=== PATIENT | male | born 1965 | race Caucasian/White ===

== ENCOUNTER 2021-03-30 13:13 | Inpatient (IN) | payer MEDICAID ==
[~2021-03-30] VITALS: Ht 157.5 cm; Wt 80.7 kg
[2021-03-30] MEDS ORDERED: SODIUM CHLORIDE 0.9% 1,000 ML IV ONE (16:30)
[2021-03-30] MEDS ORDERED: ASPIRIN 325MG EC TABLET PO ONE (16:45)
[2021-03-30 17:00] LABS: BASOPHILS % 0.7 % (0.0-2.0); EOSINOPHILS % 1.7 % (0.0-5.0); LYMPHOCYTES % 19.3 % (20.0-50.0); MEAN CORPUSCULAR HEMOGLOBIN 16.7 pg (28.0-32.0); MEAN CORPUSCULAR VOLUME 60.4 fL (80.0-94.0); MEAN PLATELET VOLUME 8.3 fl (7.4-10.4); MONOCYTES % 9.2 % (2.0-8.0); NEUTROPHILS % 69.1 % (40.0-76.0); PLATELET 288 x1000/uL (130-400); RED BLOOD CELL COUNT 3.46 mill/uL (4.7-6.1); RED CELL DISTRIBUTION WIDTH 20.9 % (11.6-14.6)
[2021-03-30 17:16] LABS: CHLORIDE 105 mEq/L (98-107)
[2021-03-30 17:25] LABS: HEMATOCRIT. 20.9 % (42.0-52.0); HEMOGLOBIN. 5.8 g/dL (14.0-18.0)
[2021-03-30 17:57] LABS: PLATELET ESTIMATE NORMAL
[2021-03-30] MEDS ORDERED: PANTOPRAZOLE 80 MG in SODIUM CHLORIDE 0.9% 100 ML IV STA (17:57)
[2021-03-30] MEDS ORDERED: PANTOPRAZOLE SODIUM 40 MG/VIAL IV STA (17:57)
[2021-03-30 18:35] LABS: INR 1.1; PARTIAL THROMBOPLASTIN TIME < 21.0 sec (23.4-31.0); PROTHROMBIN TIME 11.6 sec (9.6-11.0)
[2021-03-30] MEDS ORDERED: DIPHENHYDRAMINE 50MG/ML VIAL IV PRN (19:30)
[2021-03-30] MEDS ORDERED: CLONIDINE 0.1MG TABLET PO PRN (19:30)
[2021-03-30] MEDS ORDERED: ONDANSETRON HCL 4MG/2ML INJ IV PRN (19:30)
[2021-03-30] MEDS ORDERED: ACETAMINOPHEN 325MG TABLET PO PRN (19:30)
[2021-03-30 19:49] LABS: TOTAL IRON BINDING CAPACITY 420 ug/dL (250-450)
[2021-03-30 20:13] LABS: FOLIC ACID (FOLATE) SERUM > 20.00 ng/mL (>5.38)
[2021-03-30 20:20] LABS: VITAMIN B12 SERUM 312 pg/mL (211-911)
[2021-03-30 20:33] LABS: FERRITIN < 5 ng/mL (22-322)
[2021-03-30 21:00] VITALS: BP 140/83
[2021-03-30] MEDS: SODIUM CHLORIDE 0.9% 1,000 ML IV SCH ×2 (21:05→23:50)
[2021-03-30 22:00] VITALS: BP 140/83
[2021-03-31] VITALS (12 sets, daily range): BP systolic 103–138; BP diastolic 45–90
[2021-03-31 07:04] LABS: CHLORIDE 107 mEq/L (98-107)
[2021-03-31 07:15] LABS: LDL CHOLESTEROL 63 mg/dL (5-100)
[2021-03-31 07:16] LABS: HDL CHOLESTEROL 28 mg/dL (40-59)
[2021-03-31 07:41] LABS: BASOPHILS % 0.9 % (0.0-2.0); EOSINOPHILS % 1.8 % (0.0-5.0); HEMATOCRIT. 22.5 % (42.0-52.0); LYMPHOCYTES % 24.2 % (20.0-50.0); MEAN CORPUSCULAR HEMOGLOBIN 18.1 pg (28.0-32.0); MEAN CORPUSCULAR VOLUME 64.4 fL (80.0-94.0); MEAN PLATELET VOLUME 8.7 fl (7.4-10.4); MONOCYTES % 7.7 % (2.0-8.0); NEUTROPHILS % 65.4 % (40.0-76.0); PLATELET 260 x1000/uL (130-400); RED CELL DISTRIBUTION WIDTH 23.6 % (11.6-14.6)
[2021-03-31 07:55] LABS: HEMOGLOBIN. 6.3 g/dL (14.0-18.0)
[2021-03-31] MEDS: SODIUM CHLORIDE 0.9% 1,000 ML IV SCH ×2 (08:26→20:30)
[2021-03-31 11:58] LABS: TOTAL IRON BINDING CAPACITY 388 ug/dL (250-450)
[2021-03-31] MEDS: PANTOPRAZOLE SODIUM 40 MG/VIAL IV SCH (17:45)
[2021-03-31 21:07] LABS: HEMATOCRIT 28.5 % (42.0-52.0); HEMOGLOBIN 8.2 g/dL (14.0-18.0)
[2021-04-01] VITALS: BP 134/82
[2021-04-01] MEDS: SODIUM CHLORIDE 0.9% 1,000 ML IV SCH ×2 (03:00→08:56)
[2021-04-01 04:00] VITALS: BP 129/84
[2021-04-01 08:00] VITALS: BP 132/77
[2021-04-01] MEDS: PANTOPRAZOLE SODIUM 40 MG/VIAL IV SCH (08:56)
[2021-04-01 09:06] LABS: FOLATE HEMATOCRIT 24.5 % (37.5-51.0)
[2021-04-01 12:00] VITALS: BP 132/83
[2021-04-01 15:06] LABS: FOLATE HEMOLYSATE < 120.0 ng/mL (Not Estab.); FOLATE RBC < 490 ng/mL (>498)
[2021-04-01 16:00] VITALS: BP 143/86
== END 2021-04-01 16:50 | disposition left against medical advice (07) | DRG 253 ==
LOC: ER 13:13 → EDBEDREQTM 18:09 → EDBEDREQ 18:09 → ENRESERV 19:57 → 7EST 21:42
PROVIDERS: ADMIT Internal Medicine; ATTEND Internal Medicine
PROC: 30233N1 Transfusion of Nonautologous Red Blood Cells into Peripheral Vein, Percutaneous Approach (ICD-10-PCS; principal; 2021-03-30)
DX: K92.2 Gastrointestinal hemorrhage, unspecified (principal); E44.0 Moderate protein-calorie malnutrition; D64.9 Anemia, unspecified; Z53.29 Procedure and treatment not carried out because of patient's decision for other reasons; Z72.89 Other problems related to lifestyle; Z68.32 Body mass index [BMI] 32.0-32.9, adult
CPT/HCPCS: 36415; 71045; 78278; 80053; 80061; 82607; 82728; 82746; 82747; 83540; 83550; 84443; 84484; 85014; 85018; 85025; 85044; 86850; 86900; 86920; 93005; 93970; 99285; A9560; C1893; C9113; J7030; J7040; J7050; P9016

== ENCOUNTER 2024-01-17 17:58 | Emergency (ER) | payer MEDICAID ==
[~2024-01-17] VITALS: Ht 157.5 cm; Wt 79.4 kg
[2024-01-17 18:11] VITALS: BP 161/85; PULSE 95; RESP 16; O2SAT 98
[2024-01-17 19:34] VITALS: TEMP 98.7
[2024-01-17] MEDS: ACETAMINOPHEN 325MG TABLET PO ONE (19:34)
== END 2024-01-17 22:10 | disposition home or self-care (01) ==
LOC: ER 17:58
DX: S20.312A Abrasion of left front wall of thorax, initial encounter (principal); R07.89 Other chest pain; F19.90 Other psychoactive substance use, unspecified, uncomplicated; W01.0XXA Fall on same level from slipping, tripping and stumbling without subsequent striking against object, initial encounter; Y93.89 Activity, other specified; Y92.89 Other specified places as the place of occurrence of the external cause; Y99.8 Other external cause status
CPT/HCPCS: 71046; 99283

== ENCOUNTER 2025-04-21 14:45 | Inpatient (IN) | payer MEDICAID ==
[~2025-04-21] VITALS: Ht 157.5 cm; Wt 51.5 kg
[2025-04-21 14:54] VITALS: O2SAT 97
[2025-04-21 16:50] LABS: BASOPHILS % 1.5 % (0.0-2.0); EOSINOPHILS % 1.9 % (0.0-5.0); HEMATOCRIT. 27.9 % (42.0-52.0); HEMOGLOBIN. 8.3 g/dL (14.0-18.0); LYMPHOCYTES % 10.5 % (20.0-50.0); MEAN PLATELET VOLUME 8.8 fl (7.4-10.4); MONOCYTES % 6.5 % (2.0-8.0); NEUTROPHILS % 79.6 % (40.0-76.0); PLATELET 169 x1000/uL (130-400); RED BLOOD CELL COUNT 3.85 mill/uL (4.7-6.1); RED CELL DISTRIBUTION WIDTH 22.0 % (11.6-14.6)
[2025-04-21 16:53] LABS: ADD RBC MORPHOLOGY YES
[2025-04-21] MEDS: FUROSEMIDE 40MG/4ML VIAL IVP ONE (16:53)
[2025-04-21 17:01] LABS: INR 1.6
[2025-04-21 17:03] LABS: CREATININE 0.6 mg/dL (0.6-1.3); UREA NITROGEN BLOOD < 5 mg/dL (9-23)
[2025-04-21 17:04] LABS: TROPONIN I HIGH SENSITIVITY < 4 ng/L (3.0-53)
[2025-04-21 17:05] LABS: ASPARTATE AMINOTRANSFERASE 80 IU/L (<34); BILIRUBIN DIRECT 1.8 mg/dL (<=3.0)
[2025-04-21 17:06] LABS: BILIRUBIN TOTAL 3.6 mg/dL (0.1-1.0); PLATELET ESTIMATE NORMAL; PROTEIN TOTAL 8.2 g/dL (6.0-8.3)
[2025-04-21 20:29] LABS: CLARITY URINE CLEAR (CLEAR); COLOR URINE YELLOW (YELLOW); GLUCOSE URINE NEGATIVE (NEGATIVE); KETONES URINE NEGATIVE (NEGATIVE); LEUKOCYTE ESTERASE URINE NEGATIVE (NEGATIVE); NITRITE URINE NEGATIVE (NEGATIVE); OCCULT BLOOD URINE NEGATIVE (NEGATIVE); PH URINE 5.5 (4.5-8.0); PROTEIN URINE NEGATIVE (NEGATIVE); SPECIFIC GRAVITY URINE 1.007 (1.005-1.030); UROBILINOGEN URINE 0.2 E.U./dL (0.2-1.0)
[2025-04-21 21:09] VITALS: BP 124/75; PULSE 91; RESP 18; TEMP 36.9184
[2025-04-21] MEDS ORDERED: ACETAMINOPHEN 325MG TABLET PO PRN (21:45)
[2025-04-21] MEDS ORDERED: IPRATROPIUM/ALBUTEROL 0.5-3(2.5)MG/3ML NEB HHN PRN (21:45)
[2025-04-21] MEDS ORDERED: ONDANSETRON HCL 4MG/2ML INJ IV PRN (21:45)
[2025-04-21] MEDS ORDERED: CLONIDINE 0.1MG TABLET PO PRN (21:45)
[2025-04-21] MEDS ORDERED: MAGNESIUM/ALUMINUM HYDROXIDE/SIMETHICONE 30ML UDC PO PRN (21:45)
[2025-04-21] MEDS ORDERED: HYDROCODONE/ACETAMINOPHEN 5/325MG TABLET PO PRN (21:45)
[2025-04-21] MEDS ORDERED: DOCUSATE SODIUM 100MG CAPSULE PO PRN (21:45)
[2025-04-22] VITALS: BP 113/59; PULSE 76; RESP 19; TEMP 36.6; O2SAT 97
[2025-04-22 04:00] VITALS: BP 120/60; PULSE 86; RESP 18; TEMP 36.2; O2SAT 96
[2025-04-22 07:06] LABS: BASOPHILS % 1.1 % (0.0-2.0); EOSINOPHILS % 3.7 % (0.0-5.0); HEMATOCRIT. 25.3 % (42.0-52.0); HEMOGLOBIN. 7.8 g/dL (14.0-18.0); LYMPHOCYTES % 15.2 % (20.0-50.0); MEAN PLATELET VOLUME 9.2 fl (7.4-10.4); MONOCYTES % 8.7 % (2.0-8.0); NEUTROPHILS % 71.3 % (40.0-76.0); PLATELET 145 x1000/uL (130-400); RED BLOOD CELL COUNT 3.50 mill/uL (4.7-6.1); RED CELL DISTRIBUTION WIDTH 22.3 % (11.6-14.6)
[2025-04-22 07:29] LABS: TROPONIN I HIGH SENSITIVITY < 4 ng/L (3.0-53)
[2025-04-22 07:40] LABS: T4 FREE 1.02 ng/dL (0.89-1.76)
[2025-04-22 07:41] LABS: CREATININE 0.5 mg/dL (0.6-1.3); TRIGLYCERIDE 88 mg/dL (0-150); UREA NITROGEN BLOOD < 5 mg/dL (9-23)
[2025-04-22 07:42] LABS: ASPARTATE AMINOTRANSFERASE 59 IU/L (<34); LDL CHOLESTEROL 45 mg/dL (5-100); PROTEIN TOTAL 7.0 g/dL (6.0-8.3)
[2025-04-22 07:43] LABS: BILIRUBIN DIRECT 1.3 mg/dL (<=3.0); PHOSPHORUS 3.2 mg/dL (2.5-4.9)
[2025-04-22 08:00] VITALS: BP 111/55; PULSE 82; RESP 16; TEMP 36.4; O2SAT 99
[2025-04-22 09:13] LABS: *AMPHETAMINES SCREEN URINE NEGATIVE (NEGATIVE); *BARBITURATES SCREEN URINE NEGATIVE (NEGATIVE); *BENZODIAZEPINES SCREEN URINE NEGATIVE (NEGATIVE); *COCAINE SCREEN URINE NEGATIVE (NEGATIVE); METHADONE URINE SCREEN NEGATIVE (NEGATIVE); OPIATES URINE SCREEN NEGATIVE (NEGATIVE)
[2025-04-22 09:14] LABS: CANNABINOID URINE SCREEN NEGATIVE (NEGATIVE); ECSTASY MDMA SCREEN URINE NEGATIVE (NEGATIVE); PHENCYCLIDINE URINE SCREEN NEGATIVE (NEGATIVE)
[2025-04-22 09:52] LABS: BILIRUBIN TOTAL 2.6 mg/dL (0.1-1.0)
[2025-04-22 12:00] VITALS: BP 115/71; PULSE 91; RESP 17; TEMP 36.3; O2SAT 98
[2025-04-22] MEDS: SODIUM CHLORIDE 0.45% 1,000 ML IV SCH (16:30)
[2025-04-22] MEDS: SPIRONOLACTONE 12.5MG TABLET PO SCH (17:58)
[2025-04-22] MEDS: FUROSEMIDE 40MG TABLET PO SCH (17:59)
[2025-04-22 20:00] VITALS: BP 127/78; PULSE 92; RESP 20; TEMP 36.3; O2SAT 98
[2025-04-22] MEDS: LACTULOSE 20G/30ML UDC PO SCH (22:00)
[2025-04-23] VITALS: BP 103/51; PULSE 85; RESP 19; TEMP 36.3; O2SAT 97
[2025-04-23 01:32] LABS: HEPATITIS A AB IGM NEGATIVE (Negative)
[2025-04-23 01:33] LABS: HEPATITIS B CORE AB IGM NEGATIVE (Negative); HEPATITIS C AB NON REACTIVE (Neg) (Negative)
[2025-04-23 04:00] VITALS: BP 108/62; PULSE 94; RESP 20; TEMP 36.2; O2SAT 99
[2025-04-23 07:26] LABS: INR 1.7
[2025-04-23 07:38] LABS: CREATININE 0.6 mg/dL (0.6-1.3); UREA NITROGEN BLOOD < 5 mg/dL (9-23)
[2025-04-23 07:40] LABS: ASPARTATE AMINOTRANSFERASE 59 IU/L (<34); BILIRUBIN DIRECT 1.3 mg/dL (<=3.0); BILIRUBIN TOTAL 2.6 mg/dL (0.1-1.0); PHOSPHORUS 3.0 mg/dL (2.5-4.9); PROTEIN TOTAL 7.2 g/dL (6.0-8.3)
[2025-04-23 07:42] LABS: BASOPHILS % 0.8 % (0.0-2.0); EOSINOPHILS % 2.8 % (0.0-5.0); HEMATOCRIT. 25.6 % (42.0-52.0); HEMOGLOBIN. 7.7 g/dL (14.0-18.0); LYMPHOCYTES % 14.4 % (20.0-50.0); MEAN PLATELET VOLUME 9.0 fl (7.4-10.4); MONOCYTES % 8.7 % (2.0-8.0); NEUTROPHILS % 73.3 % (40.0-76.0); PLATELET 140 x1000/uL (130-400); RED BLOOD CELL COUNT 3.55 mill/uL (4.7-6.1); RED CELL DISTRIBUTION WIDTH 22.7 % (11.6-14.6)
[2025-04-23 07:48] LABS: FOLIC ACID (FOLATE) SERUM 12.50 ng/mL (>5.38); VITAMIN B12 SERUM 1463 pg/mL (211-911)
[2025-04-23 08:00] VITALS: BP 101/55; PULSE 88; RESP 18; TEMP 36.4; O2SAT 97
[2025-04-23 08:15] LABS: CLARITY URINE CLEAR (CLEAR); COLOR URINE DARK YELLOW (YELLOW); GLUCOSE URINE NEGATIVE (NEGATIVE); KETONES URINE TRACE (NEGATIVE); LEUKOCYTE ESTERASE URINE TRACE (NEGATIVE); NITRITE URINE POSITIVE (NEGATIVE); OCCULT BLOOD URINE NEGATIVE (NEGATIVE); PH URINE 6.0 (4.5-8.0); PROTEIN URINE 1+ (NEGATIVE); SPECIFIC GRAVITY URINE 1.027 (1.005-1.030); UROBILINOGEN URINE 1.0 E.U./dL (0.2-1.0)
[2025-04-23] MEDS: CARVEDILOL 3.125 MG TABLET PO SCH (08:43)
[2025-04-23 10:19] LABS: MUCUS URINE 2+ /lpf (NONE/TRACE); SQUAMOUS EPITHELIAL CELL URINE NONE SEEN /lpf (RARE/1+)
[2025-04-23 10:20] LABS: BACTERIA URINE 1+
[2025-04-23 10:21] LABS: RBC URINE NONE SEEN /hpf (0-2)
[2025-04-23] MEDS ORDERED: NALOXONE HCL 0.4MG/ML VIAL IV PRN (10:45)
[2025-04-23] MEDS: POTASSIUM CHLORIDE 20MEQ TABLET SR PO SCH (11:48)
[2025-04-23 12:00] VITALS: BP 106/54; PULSE 89; RESP 18; TEMP 36.3; O2SAT 97
[2025-04-23] MEDS: FERROUS SULFATE 325MG TABLET PO SCH (12:00)
[2025-04-23] MEDS ORDERED: LIDOCAINE HCL 1% 10 MG/ML 10ML VIAL ONE (12:02)
[2025-04-23] MEDS ORDERED: SODIUM BICARBONATE 4.2% 2.5MEQ/5ML VIAL IV ONE (12:02)
[2025-04-23] MEDS: POTASSIUM CHLORIDE 20MEQ TABLET SR PO NR (14:40)
[2025-04-23] MEDS: CALCIUM GLUCONATE 1GM PREMIX 50 ML IV NR (14:41)
[2025-04-23 16:00] VITALS: BP 93/48; PULSE 81; RESP 17; TEMP 36.7; O2SAT 96
[2025-04-23 20:00] VITALS: BP 102/52; PULSE 77; RESP 20; TEMP 36.7; O2SAT 99
[2025-04-23] MEDS: POTASSIUM CHLORIDE 20MEQ TABLET SR PO PRN (22:16)
[2025-04-23 23:00] LABS: BODY FLUID MONOCYTES 7 %; BODY FLUID RBC 324 /cu mm (0-2000); BODY FLUID WBC 159 /cu mm (0-200)
[2025-04-24] VITALS: BP 95/55; PULSE 82; RESP 20; TEMP 36.7; O2SAT 98
[2025-04-24 04:00] VITALS: BP 97/57; PULSE 85; RESP 20; TEMP 36.6; O2SAT 98
[2025-04-24 08:00] VITALS: BP 127/76; PULSE 77; RESP 18; TEMP 36.4; O2SAT 98
[2025-04-24 08:51] LABS: ASPARTATE AMINOTRANSFERASE 64 IU/L (<34); CREATININE 0.5 mg/dL (0.6-1.3)
[2025-04-24 08:52] LABS: UREA NITROGEN BLOOD < 5 mg/dL (9-23)
[2025-04-24 08:54] LABS: BILIRUBIN DIRECT 1.1 mg/dL (<=3.0); BILIRUBIN TOTAL 2.2 mg/dL (0.1-1.0); PROTEIN TOTAL 7.7 g/dL (6.0-8.3)
[2025-04-24 09:28] LABS: BASOPHILS % 1.1 % (0.0-2.0); EOSINOPHILS % 4.3 % (0.0-5.0); HEMATOCRIT. 27.9 % (42.0-52.0); HEMOGLOBIN. 8.3 g/dL (14.0-18.0); LYMPHOCYTES % 16.0 % (20.0-50.0); MEAN PLATELET VOLUME 8.8 fl (7.4-10.4); MONOCYTES % 7.5 % (2.0-8.0); NEUTROPHILS % 71.1 % (40.0-76.0); PLATELET 164 x1000/uL (130-400); RED BLOOD CELL COUNT 3.83 mill/uL (4.7-6.1); RED CELL DISTRIBUTION WIDTH 22.0 % (11.6-14.6)
[2025-04-24 12:00] VITALS: BP_SYST 150; BP_SYST 97; BP_DIAS 54; BP_DIAS 90; PULSE 80; PULSE 97; RESP 14; RESP 18; TEMP 36.1; TEMP 36.2; TEMP 36.5; O2SAT 95; O2SAT 99
[2025-04-24 16:00] VITALS: BP 102/65; PULSE 74; RESP 19; TEMP 36.4; O2SAT 99
[2025-04-24 20:00] VITALS: BP 109/66; PULSE 80; RESP 21; TEMP 36.6; O2SAT 98
[2025-04-25] VITALS: BP 125/68; PULSE 75; RESP 21; TEMP 36.5; O2SAT 99
[2025-04-25 04:00] VITALS: BP 114/67; PULSE 75; RESP 21; TEMP 36.5; O2SAT 99
[2025-04-25 08:00] VITALS: BP 127/73; PULSE 77; RESP 18; TEMP 36.7; O2SAT 98
[2025-04-25 11:42] LABS: BASOPHILS % 1.0 % (0.0-2.0); EOSINOPHILS % 4.2 % (0.0-5.0); HEMATOCRIT. 28.3 % (42.0-52.0); HEMOGLOBIN. 8.5 g/dL (14.0-18.0); LYMPHOCYTES % 15.9 % (20.0-50.0); MEAN PLATELET VOLUME 8.8 fl (7.4-10.4); MONOCYTES % 8.3 % (2.0-8.0); NEUTROPHILS % 70.6 % (40.0-76.0); PLATELET 164 x1000/uL (130-400); RED BLOOD CELL COUNT 3.87 mill/uL (4.7-6.1); RED CELL DISTRIBUTION WIDTH 22.6 % (11.6-14.6)
[2025-04-25 11:52] LABS: ADD RBC MORPHOLOGY NO
[2025-04-25 12:22] LABS: CREATININE 0.6 mg/dL (0.6-1.3)
[2025-04-25 12:23] LABS: UREA NITROGEN BLOOD < 5 mg/dL (9-23)
[2025-04-25 12:24] LABS: ASPARTATE AMINOTRANSFERASE 71 IU/L (<34)
[2025-04-25 12:25] LABS: BILIRUBIN DIRECT 1.2 mg/dL (<=3.0); BILIRUBIN TOTAL 2.4 mg/dL (0.1-1.0); PROTEIN TOTAL 7.7 g/dL (6.0-8.3)
[2025-04-25] MEDS: POTASSIUM CHLORIDE 20MEQ TABLET SR PO SCH (15:39)
[2025-04-25 16:00] VITALS: BP 105/54; PULSE 80; RESP 19; TEMP 36.5; O2SAT 99
[2025-04-25] MEDS ORDERED: COR3 MT (17:27)
[2025-04-25] MEDS ORDERED: LACT10SO81 MT (17:27)
[2025-04-25] MEDS ORDERED: SPIR25TA6 MT (17:27)
[2025-04-25] MEDS ORDERED: ASCO-339 MT (17:27)
[2025-04-25] MEDS ORDERED: FURO-151 MT (17:27)
[2025-04-25] MEDS ORDERED: FERR-71 MT (17:27)
[2025-04-25 20:00] VITALS: BP 128/69; PULSE 82; RESP 18; TEMP 36.6; O2SAT 98
[2025-04-26] VITALS (7 sets, daily range): BP systolic 101–124; BP diastolic 55–75; PULSE 71–89; RESP 18–20; TEMP 36.2–37.1; O2SAT 95–100
[2025-04-26 10:48] LABS: ASPARTATE AMINOTRANSFERASE 80 IU/L (<34); BILIRUBIN DIRECT 1.0 mg/dL (<=3.0); BILIRUBIN TOTAL 1.9 mg/dL (0.1-1.0); PROTEIN TOTAL 7.1 g/dL (6.0-8.3)
[2025-04-26] MEDS: LACTULOSE ENEMA 1,000ML BOTTLE PR SCH (16:00)
== END 2025-04-26 16:55 | disposition home or self-care (01) ==
LOC: ER 14:45 → EDBEDREQ 17:37 → EDBEDREQTM 17:37 → ENRESERV 20:40 → 6WST 21:08
PROVIDERS: ADMIT Family Medicine Adult Medicine; ATTEND Family Medicine Adult Medicine
PROC: 0W9G3ZZ Drainage of Peritoneal Cavity, Percutaneous Approach (ICD-10-PCS; principal; 2025-04-23)
DX: K74.60 Unspecified cirrhosis of liver (principal); D68.9 Coagulation defect, unspecified; R18.8 Other ascites; K42.9 Umbilical hernia without obstruction or gangrene; K76.6 Portal hypertension; D50.9 Iron deficiency anemia, unspecified; E86.0 Dehydration; E87.1 Hypo-osmolality and hyponatremia; E87.6 Hypokalemia; I95.9 Hypotension, unspecified; R16.1 Splenomegaly, not elsewhere classified; E80.6 Other disorders of bilirubin metabolism; Z79.899 Other long term (current) drug therapy; E83.42 Hypomagnesemia
CPT/HCPCS: 36415; 49083; 71045; 74176; 76700; 80048; 80061; 80076; 80305; 80320; 81003; 82105; 82140; 82270; 82607; 82728; 82746; 82977; 83540; 83550; 83735; 83880; 84100; 84134; 84439; 84443; 84484; 85014; 85018; 85025; 85044; 86705; 86709; 86850; 86900; 87077; 87186; 87340; 93005; 93970; 99285; A4606; J0612; J1938; J2003; J3490; G0480